=== PATIENT | female | born 1990 | race African-American/Black ===

== ENCOUNTER 2017-01-27 16:07 | Emergency (ER) | payer BC, OTHER ==
[~2017-01-27] VITALS: Ht 157.5 cm; Wt 62.6 kg
[~2017-01-27 16:07] MED LIST: AMOXICILLIN 50500 M1 PO; APAP/CODEINE ELI5 M1 OR; APAP500 PO; BENADRYL25 MG PO; CIPROFLOXACIN500 M1 PO; COLACE 100 MG100 MG PO; FLONASE 0.05%50 MCG NASAL; HYDROCODON-ACE1 EAC5 PO; IBUPROFEN 600600 M1 PO; IBUPROFEN 800800 M1 PO; IRON325 PO; MOM PO; MUCINEX600 MG; MYLANTA TABLET1 TA1; NOHOMEMEDICATIONS; NORCO 5-325 TA1 EACH PO; PHENERGAN 25 MG25 M1 PO; PRENATAL PO; PROMETHAZINE-C120 ML PO; ULTRAM 50MG TAB50 MG PO; VALTREX 500 MG500 MG PO; ZOFRAN4 MG PO; ZPAK PO; [UNRECOGNIZED DRUG - REMARK]
[2017-01-27 16:20] LABS: URINE BILIRUBIN NEGATIVE (Negative); URINE BLOOD NEGATIVE (Negative); URINE COLOR YELLOW; URINE GLUCOSE-RANDOM* NEGATIVE (Negative); URINE KETONES NEGATIVE (Negative); URINE LEUKOCYTES-REFLEX NEGATIVE (Negative); URINE PROTEIN (DIPSTICK) NEGATIVE (Negative)
[2017-01-27 16:43] LABS: ABSOLUTE NEUTROPHILS 2.9 thou/uL (1.4-8.2); BASOPHILS 0.6 % (0.0-2.0); HEMATOCRIT 37.2 % (37.0-47.0); HEMOGLOBIN 12.9 gm/dL (12.0-15.0); LYMPHOCYTES 20.1 % (24.0-44.0); MCH 31.1 pg (26.0-34.0); MCHC 34.8 g/dL (28.0-37.0); MCV 89.4 fL (80.0-100.0); MONOCYTES 6.9 % (1.0-8.0); PLATELET COUNT 182 thou/uL (150-400); POLYS 71.4 % (36.0-66.0); RBC 4.16 mil/uL (4.20-5.00); RDW 13.8 % (10.5-14.5)
[2017-01-27 16:44] LABS: MANUAL DIFF NO
[2017-01-27 16:51] LABS: CALCIUM 8.7 mg/dL (8.5-10.1); CREATININE 0.7 mg/dL (0.6-1.0); POTASSIUM 3.7 mmol/L (3.5-5.1)
[2017-01-27 16:55] LABS: ALBUMIN 3.8 g/dL (3.4-5.0); TOTAL BILIRUBIN 0.8 mg/dL (<0.1-1.0); TOTAL PROTEIN 7.2 g/dL (6.4-8.2)
[2017-01-27] MEDS ORDERED: ZOFRAN ODT8 MG PO (17:10)
[2017-01-27 17:29] VITALS: BP 122/84
== END 2017-01-27 17:30 | disposition home or self-care (01) ==
LOC: ER 16:07
PROVIDERS: Physician Assistant
DX: R11.2 Nausea with vomiting, unspecified (principal); F17.210 Nicotine dependence, cigarettes, uncomplicated

== ENCOUNTER 2017-05-25 11:15 | Emergency (ER) | payer BC, OTHER ==
[~2017-05-25] VITALS: Ht 160 cm; Wt 61.4 kg
[~2017-05-25 11:15] MED LIST changes: +ZOFRAN ODT8 MG PO
[2017-05-25 11:56] LABS: URINE BILIRUBIN NEGATIVE (Negative); URINE BLOOD 3+ (Negative); URINE COLOR YELLOW; URINE GLUCOSE-RANDOM* NEGATIVE (Negative); URINE KETONES NEGATIVE (Negative); URINE NITRITE NEGATIVE (Negative); URINE PROTEIN (DIPSTICK) NEGATIVE (Negative); URINE SPECIFIC GRAVITY 1.015 (1.003-1.035)
[2017-05-25] MEDS ORDERED: BIRTH CONTROL PATCH (12:08)
[2017-05-25] MEDS ORDERED: CELEXA20 MG PO (12:08)
[2017-05-25 12:22] LABS: CASTS None Seen /LPF (None Seen); SQUAMOUS >10 Many /LPF (0-3)
[2017-05-25 12:23] LABS: BACTERIA 1-9 Few /HPF (None Seen); CRYSTALS None Seen /LPF (None Seen); URINE RBC 3-10 Few /HPF (0-2); URINE WBC 6-15 Few /HPF (0-5)
[2017-05-25 12:28] LABS: ABSOLUTE NEUTROPHILS 4.1 thou/uL (1.4-8.2); BASOPHILS 0.3 % (0.0-2.0); EOSINOPHILS 1.7 % (0.0-3.0); HEMATOCRIT 33.4 % (37.0-47.0); LYMPHOCYTES 25.2 % (24.0-44.0); MANUAL DIFF NO; MCH 31.4 pg (26.0-34.0); MCHC 35.9 g/dL (28.0-37.0); MCV 87.6 fL (80.0-100.0); MONOCYTES 7.2 % (1.0-8.0); PLATELET COUNT 191 thou/uL (150-400); POLYS 65.6 % (36.0-66.0); RBC 3.81 mil/uL (4.20-5.00); WBC 6.3 thou/uL (4.0-11.0)
[2017-05-25 12:35] LABS: CALCIUM 8.6 mg/dL (8.5-10.1); CREATININE 0.8 mg/dL (0.6-1.0); POTASSIUM 3.6 mmol/L (3.5-5.1)
[2017-05-25 12:41] LABS: ALBUMIN 3.6 g/dL (3.4-5.0); TOTAL BILIRUBIN 0.6 mg/dL (<0.1-1.0); TOTAL PROTEIN 6.7 g/dL (6.4-8.2)
[2017-05-25 13:06] VITALS: BP 104/65
[2017-05-25] MEDS ORDERED: PHENERGAN 25 MG25 M1 PO (13:18)
== END 2017-05-25 13:28 | disposition home or self-care (01) ==
LOC: ER 11:15
PROVIDERS: Physician Assistant
DX: R11.2 Nausea with vomiting, unspecified (principal); F17.210 Nicotine dependence, cigarettes, uncomplicated; F10.99 Alcohol use, unspecified with unspecified alcohol-induced disorder